=== PATIENT | female | born 1945 | race Caucasian/White ===

== ENCOUNTER 2023-01-04 00:20 | Day surgery (SDC) | payer MEDICARE, SELFPAY ==
[2022-12-26 12:05] VITALS: BMI 25.9
--- NOTE | 2022-12-26 12:25 | PC.NURSE ---
Report to the Outpatient Waiting Room, entrance under the green pavilion located off [facility], at time __7:00AM on date __01/04/23 . Planned Procedure Time: __9:00AM . Time changes happen often and if your time is changed the preop area will call you the afternoon before. - You and your visitor will be asked to self-screen and do not enter if you have any COVID symptoms. - Only one visitor is requested with a max of two and NO children visitors are allowed at this time. - The patient visitor may be requested to leave or wait in car when not with patient due to distancing restrictions. - A mask is optional within the hospital at this time. Patients may have clear liquids (water, carbonated beverages, clear teas, apple juice) until 3 hours prior to surgery with a maximum of 20 ounces. - No food from midnight until time of surgery - Infants may have breast milk until 4 hours before surgery, formula 6 hours prior to surgery. - Children will be allowed to drink immediately following surgery. If applicable, please bring a bottle or sippy cup to assist with drinking. Juice, water, soda, and popsicles are readily available. For infants on formula, please bring formula the day of surgery. Pacifiers are allowed. Take the following medications with a SIP of water the morning of surgery: ___LORAZEPAM NEEDED, EYE DROPS DO NOT STOP ANY OF YOUR OTHER PRESCRIPTION MEDICATIONS PRIOR TO SURGERY ?EXCEPT THE FOLLOWING Medications to discontinue per physician ____HOLD ALL VITAMINS/SUPPLEMENTS AND IBUPROFEN FOR [address] BRADY(PER PATIENT)__ Date to take last dose 12/28/22 Please no make-up, nail stateless, hairspray, perfume, deodorant, or body powder the day of surgery. No jewelry (including any body piercings) or valuables the day of surgery, leave them at home. Please take a shower or bath the night before, or the morning of, surgery with an antibacterial soap. Wear comfortable, loose fitting clothing. Children are encouraged to wear pajamas. - Jewelry must be removed prior to entering the operating room. Rings and piercings that are not removed may be cut off. - The hospital will not accept responsibility for valuables. - Please leave all valuables, including medications, at home the day of surgery. If you are going home after surgery, a licensed pharmacy delivery driver must drive you home. - NO public transportation without another adult if you receive anesthesia. - We recommend that an adult stay with you for 24 hours following discharge. - We also recommend that you do not drive, make important decision, drink alcoholic beverages, or take any drugs that were not prescribed by your health care provider for at least 24 hours after your discharge time. Follow any additional instructions given to you from your surgeon. If you or anyone in your household have experienced Covid symptoms in the past week, please notify your surgeon or the nurse liaison at the phone number below for possible testing. Telephone instructions given to ___patient and asked if any additional questions and then verbalized understanding. Patient advised to call surgeon office or pre surgery nurse liaison [phone] if any additional questions.
--- NOTE | 2022-12-29 08:50 | PM.IMHP ---
H&P: HPI History of Present Illness Date/Time: 12/29/22 08:50 Chief Complaint: Mixed incontinence Narrative: History of mixed incontinence. Stress incontinence predominant. Presents for surgical correction Review of Systems Review of Systems: All systems reviewed & are unremarkable except as noted in HPI and below PMFSH Social History Social History Smoking packs per day: 0.2 Smoking cigarettes per day: 4.0 Years smoked: 5 Smoking pack-years: 1.00 Smoking status: Former smoker Tobacco type: cigarettes Smoking end date: 03/30/75 Alcohol intake: current Drinks per week: 2 Substance use: never Living arrangements: with family Additional living arrangements comments: [facility] Spiritual care concerns: No Meds Home Medications and Allergies Home Medications Medication Instructions Recorded Confirmed Type Cordycep 1 tab-cap PO DAILY 12/26/22 12/26/22 History Refveratoril 1 tab-cap PO DAILY 12/26/22 12/26/22 History cholecalciferol (vitamin D3) 50 50 mcg PO DAILY 12/26/22 12/26/22 History mcg (2,000 unit) capsule glucosamine sulf dipot 1 cap PO DAILY 12/26/22 12/26/22 History chlr,msm,chond 550 mg-C 30 mg-kanwal 1 mg capsule (Glucosamine Chondroitin) hydroxyzine HCl 25 mg tablet 25 mg PO BID PRN Itching 12/26/22 12/26/22 History ibuprofen 800 mg tablet 800 mg PO Q6H PRN Pain 12/26/22 12/26/22 History lorazepam 0.5 mg tablet 0.25 mg PO DAILY PRN Anxiety 12/26/22 12/26/22 History tobramycin 0.3 %-dexamethasone 0.1 1 drp EACH EYE BID 12/26/22 12/26/22 History % eye drops,suspension triamcinolone acetonide 0.1 % 1 applic topical BID PRN Itching 12/26/22 12/26/22 History topical cream Allergies Allergy/AdvReac Type Severity Reaction Status Date / Time Sulfa (Sulfonamide Allergy Unknown Rash Verified 12/26/22 11:55 Antibiotics) CYCLINES Allergy Mild VAGINAL Uncoded 12/26/22 11:55 ITCHING Exam Narrative: No acute distress Normal breathing Alert orient x3 Urethral mobility noted Assessment and Plan Assessment and plan (1) KRISTIAN (stress urinary incontinence, female): Code(s): N39.3 - Stress incontinence (female) (male) Status: Acute Assessment and Plan: Plan for urethral sling. Understands this is were stress incontinence and will not help overactive bladder. Understands risks of bleeding, infection, damage to the urinary tract, vaginal mesh extrusion, urinary tract mesh erosion, obstructive voiding requiring secondary seizure competently pain, dyspareunia. She agrees to proceed (2) Overactive bladder: Code(s): N32.81 - Overactive bladder Status: Acute
--- NOTE | 2023-01-03 16:13 | P.PNAN_ITS ---
Anes - Initial Pre Proc Eval Procedure: Operation Date: 01/04/23 09:00 Proposed Procedures p Urethral Sling - Raheem Muniz MD Date/Time: 01/03/23 16:13 Surgeon: Raheem Muniz MD Pre Op Diagnosis: Stress Incont Patient Data Age: 77 Gender: F Height: 1.68 m Weight: 73 kg Allergies Allergy/AdvReac Type Severity Reaction Status Date / Time Sulfa (Sulfonamide Allergy Unknown Rash Verified 12/26/22 11:55 Antibiotics) CYCLINES Allergy Mild VAGINAL Uncoded 12/26/22 11:55 ITCHING Home Medications Medication Instructions Recorded Confirmed Type Cordycep 1 tab-cap PO DAILY 12/26/22 12/26/22 History Refveratoril 1 tab-cap PO DAILY 12/26/22 12/26/22 History cholecalciferol (vitamin D3) 50 50 mcg PO DAILY 12/26/22 12/26/22 History mcg (2,000 unit) capsule glucosamine sulf dipot 1 cap PO DAILY 12/26/22 12/26/22 History chlr,msm,chond 550 mg-C 30 mg-kanwal 1 mg capsule (Glucosamine Chondroitin) hydroxyzine HCl 25 mg tablet 25 mg PO BID PRN Itching 12/26/22 12/26/22 History ibuprofen 800 mg tablet 800 mg PO Q6H PRN Pain 12/26/22 12/26/22 History lorazepam 0.5 mg tablet 0.25 mg PO DAILY PRN Anxiety 12/26/22 12/26/22 History tobramycin 0.3 %-dexamethasone 0.1 1 drp EACH EYE BID 12/26/22 12/26/22 History % eye drops,suspension triamcinolone acetonide 0.1 % 1 applic topical BID PRN Itching 12/26/22 12/26/22 History topical cream Patient hx anesthesia problems: none Family hx anesthesia problems: none Results Review: All pre-operative results and documents have been reviewed as part of the pre- operative evaluation. [facility] Past Medical History Medical History (Updated 01/03/23 @ 16:14 by Mode Hager MD) Melanoma Overactive bladder KRISTIAN (stress urinary incontinence, female) Social History Social History Smoking packs per day: 0.2 Smoking cigarettes per day: 4.0 Years smoked: 5 Smoking pack-years: 1.00 Smoking status: Former smoker Tobacco type: cigarettes Smoking end date: 03/30/75 Alcohol intake: current Drinks per week: 2 Substance use: never Living arrangements: with family Additional living arrangements comments: [facility] Spiritual care concerns: No Anes - Eval Final PreProcedure Day of Procedure 01/03/23 16:13 Patient weight: overweight Heart: regular rate and rhythm Lungs: clear to auscultation and normal air movement Airway: Mallampati scale class II Neurological: alert and oriented Last oral intake: >/= 8 hours ASA classification: II Emergent: no Anesthetic plan: proceed Anesthesia type and monitoring: general GIVS and LMA Results Review: All pre-operative results and documents have been reviewed as part of the pre- operative evaluation. Informed Consent: The patient's anesthetic plan and its attendant risks and benefits were discussed with the patient/family/POA. Questions were solicited and answers provided to the satisfaction of the patient/family/POA.
--- NOTE | 2023-01-04 04:37 | WPDHPUPDATE1 ---
History and Physical Update Update Date/Time: 01/04/23 04:37 History and Physical has been reviewed, including an updated exam of the patient. There are NO changes in the patient's condition. Risks, benefits, and alternatives have been discussed and questions answered. Patient agrees to proceed with procedure.
[2023-01-04] MEDS: LACTATED RINGERS 1,000 ML 30 ML IV CONT (07:00)
[2023-01-04 08:30] VITALS: BP 123/63; PULSE 64; RESP 16; TEMP 36.9; O2SAT 100
[2023-01-04] MEDS: ceFAZolin 2 GM/D5W 50 ML 2 GM/50 ML BAG IVPB (08:50)
[2023-01-04] MEDS: BUPIVACAINE/EPINEPHRINE 0.25% 10 ML VIAL INFILTRATE (09:09)
[2023-01-04 09:23] VITALS: BP 115/51; PULSE 81; RESP 16; O2SAT 100
--- NOTE | 2023-01-04 09:29 | P.OP_ITS ---
Procedure Note - Detailed Date of Procedure 01/04/23 Pre-op Diagnosis Stress Incontinence Post-op Diagnosis Same Procedure Performed mid urethral sling cystoscopy Surgeon Raheem Muniz MD Precision Dancer None Anesthesia MAC and Local Indications This is a female with confirm stress urinary incontinence. She desires surgical correction. She understands the risks of bleeding, infection, injury to the urinary tract, vaginal mesh extrusion, urinary tract mesh erosion, obstructive voiding requiring a secondary procedure, hip and leg pain, dyspareunia, inability to improve overactive bladder symptoms. She agrees to proceed. Description of Procedure She was correctly identified. Informed consent obtained. She was brought the operating room. She was given appropriate anesthesia. She was given appropriate perioperative antibiotics. A time-out performed. I marked out the site of the inner thigh incisions. I anesthetized the skin and made those incisions. I anesthetized the anterior vaginal wall over the mid urethra. Of note she has uterine prolapse which is largely asymptomatic. I made a 1 cm incision. I dissected out laterally taking great care not to injure the refilled vaginal wall. I passed the helical trocars. First on the left. Then on the right. I did this from the thigh incision towards the vaginal incision. The sling was connected to the trocars and brought out through the thigh incision. I tensioned the sling appropriately. I cut and the plastic sheaths. I then closed the incision with 2 0 Vicryl. On cystoscopy there is no tumors or surgical artifact. There was no surgical artifact in the urethra. I cut the excess sling material. Close incisions with glue. She was awakened and transferred to the PACU in stable condition. Implants Urethral sling Estimated Blood Loss 30 Urine Output -100.0 Drains No Packing No Pathology None sent Complications No immediate complications Condition Stable Disposition PACU
[2023-01-04 09:50] VITALS: BP 149/75; PULSE 78; RESP 16
--- NOTE | 2023-01-04 10:09 | SUR.PHASEII ---
delay discharge. pt still needs to void. pt said she does not have the urge. pt given more water and IV fluids. vss will continue to monitor.
[2023-01-04 10:20] VITALS: BP 139/65; PULSE 85; RESP 16
== END 2023-01-04 10:41 | disposition home or self-care (01) ==
PROVIDERS: PCP Internal Medicine; Visit Provider Urology
PROC: (CPT 57288; principal; 2023-01-04 09:00)
DX: N39.3 Stress incontinence (female) (male) (principal); N32.81 Overactive bladder; Z87.891 Personal history of nicotine dependence
CPT/HCPCS: 57288; C1771; J0690; J2250; J2704; J3010; J7030; J7120

== ENCOUNTER 2023-05-17 09:33 | Outpatient (CLI) | payer MEDICARE, SELFPAY ==
--- NOTE | ~2023-05-17 | US_ITS ---
EXAMINATION: US venous doppler [facility] DATE: 05/17/2023 10:27 INDICATION: Lower limb swelling. TECHNIQUE: Grayscale ultrasound images without and with compression and Doppler ultrasound images of the bilateral lower extremity veins were obtained. COMPARISON: None. FINDINGS: The visualized portions of right common femoral vein, profunda (deep) femoral vein, femoral vein, pop liteal vein, posterior tibial veins, peroneal veins, gastrocnemius vein and greater saphenous vein ou tflow are patent. The visualized portions of left common femoral vein, profunda femoral vein, femoral vein, popliteal v ein, posterior tibial veins, peroneal veins, gastrocnemius vein and greater saphenous vein outflow ar e patent. IMPRESSION: 1. No deep venous thrombosis in either lower limb. Reviewed, dictated and finalized at location A.
== END 2023-05-17 09:34 | disposition home or self-care (01) ==
PROVIDERS: PCP Internal Medicine; Visit Provider Internal Medicine
DX: R60.0 Localized edema (principal)
CPT/HCPCS: 93970

== ENCOUNTER 2023-07-27 14:42 | Emergency (ER) | payer MEDICARE, SELFPAY ==
--- NOTE | ~2023-07-27 | XR_ITS ---
EXAM: XR tibia fibula LT 2V DATE: 07/27/2023 15:35 HISTORY: left calf pain/swelling no injury . COMPARISON: None available. FINDINGS: Decreased mineralization. No fracture or dislocation. No lytic or blastic lesion. Mild deg enerative change in the left knee and ankle. No erosion or periosteal change. Scattered soft tissue/v ascular calcifications. IMPRESSION: No acute osseous finding the left tibia/fibula. No radiopaque foreign body. Reviewed, dictated and finalized at location K. IMPRESSION: No acute osseous finding the left tibia/fibula. No radiopaque forei gn body.
--- NOTE | 2023-07-27 14:46 | ED.EXTPRO ---
HPI - Extremity Problem General Chief complaint: Extremity Injury, Lower Stated complaint: Leg pain Time Seen by Provider: 07/27/23 15:05 Source: patient, RN notes reviewed and old records reviewed Mode of arrival: ambulatory Limitations: no limitations History of Present Illness HPI Narrative: 78-year-old female presents to the [facility] with complaints left calf pain and swelling Patient reports that it started this morning and felt like her leg was ?breaking. ? Has gotten better. Walks with a cane. Has a history of a blood clot in that leg approximately -15-18 years ago Patient has negative Homans sign. Left leg is 0.5 cm at upper calf, mid calf and lower calf greater than right leg. Patient states that she has had that blood clot that that leg is typically a little bit larger than the right. Related Data Home Medications Medication Instructions Recorded Confirmed cholecalciferol (vitamin D3) 50 50 mcg PO DAILY 12/26/22 07/27/23 mcg (2,000 unit) capsule hydroxyzine HCl 25 mg tablet 25 mg PO BID PRN Itching 12/26/22 07/27/23 triamcinolone acetonide 0.1 % 1 applic topical BID PRN Itching 12/26/22 07/27/23 topical cream Allergies Allergy/AdvReac Type Severity Reaction Status Date / Time Sulfa (Sulfonamide Allergy Unknown Rash Verified 07/27/23 14:53 Antibiotics) CYCLINES Allergy Mild VAGINAL Uncoded 07/27/23 14:53 ITCHING Review of Systems Review of Systems: All systems reviewed & are unremarkable except as noted in HPI and below Constitutional: Constitutional: Reports no additional constitutional complaints Eyes: Eyes: Reports no additional eye complaints ENT: Reports system reviewed and no additional complaints, except as documented Cardiovascular: Cardiovascular: Reports no additional cardiovascular complaints, Denies chest pain and Denies dyspnea Respiratory: Respiratory: Reports no additional respiratory complaints, Denies chest congestion, Denies cough and Denies dyspnea Gastrointestinal: Gastrointestinal: Reports no additional gastrointestinal complaints, Denies abdominal pain, Denies nausea and Denies vomiting Musculoskeletal: Musculoskeletal: Reports as per HPI Integumentary/Breasts: Skin/Breast: Reports system reviewed and no additional complaints, except as docu Neurologic: Reports system reviewed and no additional complaints, except as documented Psychiatric: Psychiatric: Reports no additional psychiatric complaints Allergic/Immunologic: Allergic/Immunologic: Reports no additional allergic/immunologic complaints PMFSH Past Medical History Medical History Melanoma Overactive bladder KRISTIAN (stress urinary incontinence, female) Social History Social History Smoking packs per day: 0.2 Smoking cigarettes per day: 4.0 Years smoked: 5 Smoking pack-years: 1.00 Smoking status: Former smoker Tobacco type: cigarettes Smoking end date: 03/30/75 Alcohol intake: current Drinks per week: 2 Substance use: never Living arrangements: with family Additional living arrangements comments: [facility] Spiritual care concerns: No Comments At the time of my signature, I reviewed and agree with the nursing past medical, surgical, social, and family history. There is no relevant family history pertinent to the patient complaint. Exam Const: General: cooperative, healthy appearing, comfortable, no acute distress, well developed, alert and well nourished Nutritional Appearance: well nourished Orientation/consciousness: patient oriented x3 Limitations: no limitations HENMT: Head: normal to inspection Ears: hearing grossly normal bilaterally and external ears normal Face/Nose/Sinus: Normal external nose present, Normal nares present, Normal nasal mucous membranes and turbinates present, normal facial exam and face symmetric Face and sinus: normal facial exam and face sy
[2023-07-27 14:53] VITALS: BP 147/70; PULSE 81; RESP 16; TEMP 36.7; O2SAT 99
[2023-07-27 14:55] VITALS: BP 147/70; PULSE 81; RESP 16; TEMP 36.7; O2SAT 99
== END 2023-07-27 16:07 | disposition home or self-care (01) ==
PROVIDERS: Emergency Provider Nurse Practitioner; PCP Internal Medicine
DX: M79.662 Pain in left lower leg (principal); Z87.891 Personal history of nicotine dependence; Z85.820 Personal history of malignant melanoma of skin
CPT/HCPCS: 73590; 99213; G0463

== ENCOUNTER 2023-12-03 12:23 | Outpatient (CLI) | payer MEDICARE, SELFPAY ==
--- NOTE | ~2023-12-03 | XR_ITS ---
AP lateral views of the left hip Clinical history: Pain Findings: No acute fracture or dislocation is seen. Osseous alignment is anatomic. The left hip joint is preserved. Soft tissues are unremarkable. Impression: No significant abnormality is seen. Reviewed, dictated and finalized at location M. [employer] Impression: No significant abnormality is seen.
== END 2023-12-03 12:24 | disposition home or self-care (01) ==
PROVIDERS: PCP Internal Medicine; Visit Provider Physical Medicine & Rehabilitation Pain Medicine
DX: M25.552 Pain in left hip (principal)
CPT/HCPCS: 73502

== ENCOUNTER 2024-01-10 10:50 | Emergency (ER) | payer MEDICARE, SELFPAY ==
--- NOTE | ~2024-01-10 | US_ITS ---
EXAMINATION: US venous doppler [facility] DATE: 01/10/2024 11:20 INDICATION: Left lower limb swelling and pain TECHNIQUE: Grayscale ultrasound images without and with compression and Doppler ultrasound images of the left lower extremity veins were obtained. COMPARISON: None. FINDINGS: The visualized portions of left common femoral vein, profunda (deep) femoral vein, femoral vein, popl iteal vein, peroneal veins, posterior tibial veins, gastrocnemius vein and greater saphenous vein out flow are patent. IMPRESSION: 1. No deep venous thrombosis in the left lower limb. Reviewed, dictated and finalized at location B.
--- NOTE | ~2024-01-10 | CT_ITS ---
CT OF left knee EXAMINATION: CT knee LT wo con DATE: 01/10/2024 11:29 INDICATION: Knee pain with leg swelling TECHNIQUE: Computed tomography (CT) of the left knee was performed without intravenous contrast. Auto mated exposure control and iterative reconstruction technique were employed. The dose-length product was 462.58 mGy-cm. COMPARISON: Ultrasound left lower extremity DVT, same date; x-ray left tib-fib 07/19/2023. FINDINGS: Decreased mineralization. Moderate medial joint space narrowing. Tricompartmental osteophytosis, mode rate in the medial and lateral compartments. Chondrocalcinosis. No fracture or dislocation. No lytic or blastic lesion. No erosion or periosteal change. Patellar tendon enthesopathy. Small volume joint fluid. Small Sharif's cyst. The ACL is not confidently identified. The remaining major knee stabilizer s appear to be intact. IMPRESSION: No acute osseous finding in the left knee. Osteopenia. Moderate tricompartmental arthritis with chondrocalcinosis. Possible chronic ACL tear. Sm all left knee joint effusion. Small Sharif's cyst. Reviewed, dictated and finalized at location K. IMPRESSION: No acute osseous finding in the left knee. Osteopenia. Moderate tricompartmental arthritis with chondrocalcinosis. Possibl e chronic ACL tear. Small left knee joint effusion. Small Sharif's cyst.
[2024-01-10 10:51] VITALS: BP 153/81; PULSE 84; RESP 16; TEMP 36.5; O2SAT 100
--- NOTE | 2024-01-10 10:52 | ED.EXTPRO ---
HPI - Extremity Problem General Chief complaint: Extremity Problem,Nontraumatic Stated complaint: leg pain Time Seen by Provider: 01/10/24 10:52 Source: patient Mode of arrival: ambulatory Limitations: no limitations History of Present Illness HPI Narrative: Dorothy is a 78-year-old female patient presenting to the emergency room today with complaints of left leg pain with swelling. She reports pain is behind the knee and radiating down the back of her leg. She does have a strong pedal pulse. History of DVT in the left leg 16 years ago. Does not take any blood thinners. Rates her pain 8/10 currently. Pain is worse with ambulation/bearing weight. No known injury. Patient denies any shortness of breath, headache, or chest pain. Related Data Home Medications Medication Instructions Recorded Confirmed cholecalciferol (vitamin D3) 50 50 mcg PO DAILY 12/26/22 07/27/23 mcg (2,000 unit) capsule hydroxyzine HCl 25 mg tablet 25 mg PO BID PRN Itching 12/26/22 07/27/23 triamcinolone acetonide 0.1 % 1 applic topical BID PRN Itching 12/26/22 07/27/23 topical cream Allergies Allergy/AdvReac Type Severity Reaction Status Date / Time Sulfa (Sulfonamide Allergy Unknown Rash Verified 01/10/24 11:02 Antibiotics) CYCLINES Allergy Mild VAGINAL Uncoded 07/27/23 14:53 ITCHING Review of Systems Review of Systems: Pertinent positives per HPI. Patient denies any fever, chills, rash, headache, visual changes, dizziness, cough, runny nose, sore throat, shortness of breath, chest pain, palpitations, nausea, vomiting, diarrhea, constipation, abdominal pain, or any urinary issues. [facility] Past Medical History Medical History Melanoma Overactive bladder KRISTIAN (stress urinary incontinence, female) Social History Social History Smoking packs per day: 0.2 Smoking cigarettes per day: 4.0 Years smoked: 5 Smoking pack-years: 1.00 Smoking status: Former smoker Tobacco type: cigarettes Smoking end date: 03/30/75 Alcohol intake: current Drinks per week: 2 Substance use: never Living arrangements: with family Additional living arrangements comments: [facility] Spiritual care concerns: No Comments At the time of my signature, I reviewed and agree with the nursing past medical, surgical, social, and family history. There is no relevant family history pertinent to the patient complaint. Exam Narrative: General: Well-developed, well nourished, in no apparent distress Head: Normocephalic, atraumatic. Cardio: Regular rate and rhythm, s1 and s2 normal, no murmur appreciated. Resp: Clear to auscultation bilaterally, no rhonchi, rales, wheezing or rubs. Musculoskeletal: No deformity, tender to palpation over the left posterior knee with pain radiating down the left posterior leg, tenderness to palpation over the left calf muscle, nonpitting edema to the left lower extremity when compared to the right grossly normal range of motion, muscle strength strong and equal, peripheral pulse strong, no cyanosis, normal gait and station Course Course Emergency Course: Portions of this record may have been created with voice recognition software. Vital Signs Vital signs: Vital Signs Temperature 36.5 C 01/10/24 10:51 Pulse Rate 84 01/10/24 10:51 Respiratory Rate 16 01/10/24 10:51 Blood Pressure 153/81 H 01/10/24 10:51 Pulse Oximetry 100 01/10/24 10:51 Oxygen Delivery Room Air 01/10/24 10:51 Temperature 36.5 C 01/10/24 10:51 Pulse Rate 83 01/10/24 11:49 Respiratory Rate 18 01/10/24 11:49 Blood Pressure 143/73 H 01/10/24 11:49 Pulse Oximetry 97 01/10/24 11:49 Oxygen Delivery Room Air 01/10/24 10:51 Vital signs reviewed MDM - Extremity (Nontraumatic) MDM Narrative Medical decision making narrative: At the time of visit patient is resting comfortably on
--- NOTE | 2024-01-10 11:10 | PC.NURSE ---
Pt in scans at this time
[2024-01-10] MEDS: ONDANSETRON INJ 4 MG/2 ML VIAL IV PUSH (11:44)
[2024-01-10] MEDS: MORPHINE SULFATE (*CRX) 2 MG/ML INJ IV PUSH (11:44)
[2024-01-10 11:49] VITALS: BP 143/73; PULSE 83; RESP 18; O2SAT 97
[2024-01-10 11:59] LABS: Basophils Percent Auto 0.5 % (0.2-1.2); Eosinophils Absolute Auto 0.1 K/mm3 (0-0.3); Eosinophils Percent Auto 1.4 % (0-4.4); Hematocrit 43.7 % (37.0-47.0); Hemoglobin 14.4 g/dL (12.0-15.0); Immature Granulocyte Absolute 0.01 K/mm3 (0.00-0.031); Immature Granulocyte Percent A 0.2 % (0-0.5); Lymphocytes Percent Auto 17.5 % (18.3-44.2); Mean Corpuscular Hemoglobin 31.6 pg (26-34); Mean Corpuscular Volume 95.8 fl (80-100); Monocytes Absolute Auto 0.6 K/mm3 (0.1-0.6); Monocytes Percent Auto 9.2 % (2.6-8.5); Neutrophils Absolute Auto 4.5 K/mm3 (1.3-6.7); Neutrophils Percent Auto 71.2 % (45.5-73.1); Platelet Count Result 226 k/mm3 (150-375); Red Blood Count 4.56 M/mm3 (4.2-5.4); Red Cell Distribution Width 13.4 % (11.5-14.5); White Blood Count 6.3 K/mm3 (4.5-10.0)
[2024-01-10 12:09] LABS: Alanine Aminotransferase 18 U/L (6-35); Albumin Level 4.4 g/dL (3.5-5.1); Alkaline Phosphatase 76 U/L (38-126); Anion Gap 6 mmol/L (4-12); Aspartate Amino Transferase 24 U/L (14-36); Bilirubin,Total 0.5 mg/dL (0.2-1.3); Blood Urea Nitrogen 12 mg/dL (7-17); Calcium 9.8 mg/dL (8.4-10.2); Carbon Dioxide 24 mmol/L (22-30); Chloride 109 mmol/L (98-107); Estimated Glomerular Filt Rate > 60; Glucose 88 mg/dL (65-110); Potassium 4.2 mmol/L (3.4-5.0); Sodium 139 mmol/L (137-145)
[2024-01-10 12:15] LABS: INR 0.9; Prothrombin Time 12.5 Seconds (11.1-14.7)
[2024-01-10 12:16] LABS: Partial Thromboplastin Time 28.3 Seconds (22.3-36.8)
--- NOTE | 2024-01-10 13:15 | PC.NURSE ---
pt refused offers of prescribed pain medication. provider made aware, no new orders
--- NOTE | 2024-01-10 13:17 | PC.NURSE ---
pt refused ru wrap
[2024-01-10 13:29] VITALS: BP 132/74; PULSE 80; RESP 16; O2SAT 98
== END 2024-01-10 13:31 | disposition home or self-care (01) ==
PROVIDERS: Emergency Provider Nurse Practitioner Family; PCP Internal Medicine
DX: M25.462 Effusion, left knee (principal); M71.22 Synovial cyst of popliteal space [Baker], left knee; M17.12 Unilateral primary osteoarthritis, left knee; Z86.718 Personal history of other venous thrombosis and embolism; Z85.820 Personal history of malignant melanoma of skin; Z87.891 Personal history of nicotine dependence
CPT/HCPCS: 36415; 73700; 80053; 85025; 85610; 85730; 93971; 96374; 96375; 99284; J2270; J2405

== ENCOUNTER 2024-04-28 13:20 | Emergency (ER) | payer MEDICARE, SELFPAY ==
--- NOTE | ~2024-04-28 | XR_ITS ---
EXAMINATION: XR chest 2V DATE: 04/28/2024 14:59 INDICATION: Shortness of breath. Dizziness. Nausea. TECHNIQUE: Frontal and lateral views of the chest were obtained. COMPARISON: None. FINDINGS: There is mild atelectasis in the lower lung zones. No pleural effusion or pneumothorax. The heart size is normal. There are changes of anterior fusion procedure in cervical spine. There is a l eft shoulder arthroplasty. IMPRESSION: 1. Mild atelectasis in the lower lung zones. Reviewed, dictated and finalized at location A.
--- NOTE | ~2024-04-28 | CT_ITS ---
EXAMINATION: CT brain wo con DATE: 04/28/2024 16:02 INDICATION: Dizziness. TECHNIQUE: Computed tomography (CT) of the head was performed without intravenous contrast. The mA wa s adjusted according to patient size. Iterative reconstruction technique was employed. The dose-lengt h product was 605.33 mGy-cm. COMPARISON: None FINDINGS: There is no intracranial hemorrhage, acute infarction, or abnormal intracranial mass lesion . The ventricles are normal in size. The paranasal sinuses are clear. There are likely changes of ocu lar lens replacement surgeries. There is a small right mastoid effusion. IMPRESSION: 1. Normal brain. Reviewed, dictated and finalized at location A. IMPRESSION: 1. Normal brain.
[2024-04-28 13:25] VITALS: BP 128/75; PULSE 77; RESP 20; TEMP 36.5; O2SAT 100
--- NOTE | 2024-04-28 13:28 | ECG_ITS ---
Test Date: 2024-04-28 13:36:47 Measurements Intervals [place] Rate: 71 P: 34 HI: 131 QRS: 26 QRSD: 74 T: 50 QT: 395 QTc: 432 Interpretive Statements SINUS RHYTHM POSSIBLE LEFT ATRIAL ENLARGEMENT EARLY PRECORDIAL R/S TRANSITION BASELINE ARTIFACT- I, II, III, AVR, AVL, AVF BORDERLINE ECG No previous ECG available for comparison Electronically Signed On 04-28-2024 15:01:49 CDT by Cristi Workman D.O.
[2024-04-28 13:55] LABS: Basophils Absolute Auto 0.1 K/mm3 (0.0-0.1); Basophils Percent Auto 0.6 % (0.2-1.2); Eosinophils Absolute Auto 0.1 K/mm3 (0-0.3); Eosinophils Percent Auto 1.1 % (0-4.4); Hematocrit 45.7 % (37.0-47.0); Immature Granulocyte Absolute 0.02 K/mm3 (0.00-0.031); Immature Granulocyte Percent A 0.2 % (0-0.5); Lymphocytes Absolute Auto 1.98 K/mm3 (0.9-3.2); Lymphocytes Percent Auto 22.7 % (18.3-44.2); Mean Corpuscular HGB Conc 32.8 g/dl (32-36); Mean Corpuscular Hemoglobin 31.4 pg (26-34); Mean Corpuscular Volume 95.6 fl (80-100); Mean Platelet Volume 11.6 fl (7.4-10.4); Monocytes Absolute Auto 0.7 K/mm3 (0.1-0.6); Monocytes Percent Auto 7.8 % (2.6-8.5); Neutrophils Absolute Auto 5.9 K/mm3 (1.3-6.7); Neutrophils Percent Auto 67.6 % (45.5-73.1); Platelet Count Result 194 k/mm3 (150-375); Red Blood Count 4.78 M/mm3 (4.2-5.4); Red Cell Distribution Width 13.2 % (11.5-14.5); White Blood Count 8.7 K/mm3 (4.5-10.0)
--- NOTE | 2024-04-28 15:07 | ED.GENADULT ---
HPI - General Adult General Chief complaint: Unspecified <SHANA French Last Filed: 04/28/24 15:20> Stated complaint: pt states she believes she's had heatstroke, SOB, <Cassandra Chauhan PA-C - Last Filed: 04/28/24 15:20> Time Seen by Provider: 04/28/24 15:08 <SHANA French Last Filed: 04/28/24 15:20> Focused HPI: Patient is a 79-year-old female who presents the ED with report of dizziness/lightheadedness. Patient reports she was outside watering her crawford for approximately 30-45 minutes when she began feeling extremely overheated. Began feeling sweaty, nauseous, dizzy/lightheaded. She also began feeling short of breath. Went inside and sat down, but states she had a hard time catching her breath. Attempted drinking water, but persistently felt dizzy. Describes it as room spinning and also lightheaded. She then prompted here for evaluation. She is feeling improved currently. She states the trouble breathing is improved but she still felt dizzy with standing upright in radiology for her chest x-ray. She denies focal weakness or numbness, headache, chest pain, vision changes, syncope. GENERAL: Mildly anxious-appearing, well-nourished, and in no acute distress. HEAD: Normocephalic, atraumatic. CHEST: Clear to auscultation. ?No respiratory distress. HEART: Regular rate and rhythm.? NEURO: ?Alert and oriented x3. Equal press reader strength bilaterally. Strength 5/5 in upper and lower extremities bilaterally. No pronator drift. Patient screened in triage and initial orders placed.? ?Additional care and disposition to be based upon?diagnostic testing and treatment. <Cassandra Chauhan PA-C - Last Filed: 04/28/24 15:20> Source: patient <SHANA French Last Filed: 04/28/24 15:20> Mode of arrival: ambulatory <SHANA French Last Filed: 04/28/24 15:20> Limitations: no limitations <SHANA French Last Filed: 04/28/24 15:20> History of Present Illness HPI narrative: This is a 79-year-old female presenting for concerns of potential heat exhaustion versus heat stroke. Patient states that she was outside for a approximately 30-45 minutes where she felt lightheaded to the point that she might pass out. She was having subjective shortness of breath and some nausea. This slowly improved after she sat down and got side. Did not lose consciousness, did not strike her head or have any kind of trauma. She was otherwise in her normal state of health. MSE as described above by MLP. <Harish Hancock MD - Last Filed: 04/28/24 18:48> Related Data Home medications: Home Medications Medication Instructions Recorded Confirmed cholecalciferol (vitamin D3) 50 50 mcg PO DAILY 12/26/22 02/17/24 mcg (2,000 unit) capsule acetaminophen 650 mg 650 mg PO Q12H 01/17/24 02/17/24 tablet,extended release pregabalin 75 mg capsule 75 mg PO BID 01/17/24 02/17/24 valganciclovir 450 mg tablet 900 mg PO DAILY PRN 01/17/24 02/17/24 (Valcyte) <Cassandra Chauhan PA-C - Last Filed: 04/28/24 15:20> Allergies/adverse reactions: Allergies Allergy/AdvReac Type Severity Reaction Status Date / Time Sulfa (Sulfonamide Allergy Unknown Rash Verified 04/28/24 13:22 Antibiotics) tramadol Allergy Unknown Nervousness Verified 04/28/24 13:22 Tetracyclines AdvReac Unknown Vaginal Verified 04/28/24 13:22 itching <Cassandra Chauhan PA-C - Last Filed: 04/28/24 15:20> Review of Systems Review of Systems: As reviewed above in the HPI <Harish Hancock MD - Last Filed: 04/28/24 18:48> PMFSH Past Medical History Medical History: Medical History Melanoma Overactive bladder KRISTIAN (stress urinary incontinence, female) <Cassandra Chauhan PA-C - Last Filed: 04/28/24 15:20> Surgical History Surgical History: Surgical History
[2024-04-28 15:37] LABS: Alanine Aminotransferase 30 U/L (6-35); Albumin Level 4.4 g/dL (3.5-5.1); Alkaline Phosphatase 83 U/L (38-126); Anion Gap 15 mmol/L (4-12); Aspartate Amino Transferase 36 U/L (14-36); Bilirubin,Total 0.4 mg/dL (0.2-1.3); Blood Urea Nitrogen 20 mg/dL (7-17); Calcium 9.8 mg/dL (8.4-10.2); Carbon Dioxide 20 mmol/L (22-30); Chloride 102 mmol/L (98-107); Estimated Glomerular Filt Rate 48; Glucose 101 mg/dL (65-110); Potassium 3.9 mmol/L (3.4-5.0); Sodium 137 mmol/L (137-145)
[2024-04-28 15:40] LABS: Creatine Kinase 53 U/L (30-135)
[2024-04-28 15:44] LABS: Troponin I < 0.012 ng/mL (0.000-0.034)
[2024-04-28 15:47] VITALS: BP 123/79; PULSE 76; RESP 16; TEMP 36.6; O2SAT 100
[2024-04-28 15:57] LABS: Appearance Urine Clear (Clear); Bacteria Urine 4+ /hpf; Bilirubin Urine Negative (Negative); Blood Urine Negative (Negative); Color Urine Yellow (Yellow); Glucose Urine UA Negative (Negative); Ketones Urine Trace mg/dL (Negative); Leukocyte Esterase Ur 3+ LEU/UL (Negative); Nitrate Urine Positive (Negative); Non Pathogenic Casts 0-2; Protein Urine Negative (Negative); RBC Urine 0-2 /hpf (0-2); Specific Grav Ur 1.012 (1.001-1.035); Squamous Epithelial Cell Urine Occasional /hpf (Few); Urobilinogen Urine 0.2 mg/dL (<2.0); pH Urine 8.5 (5.0-9.0)
[2024-04-28 15:59] LABS: Add Urine Microscopic? YES
[2024-04-28] MEDS: MECLIZINE HCL 25 MG TABLET PO (16:49)
[2024-04-28] MEDS: ONDANSETRON INJ 4 MG/2 ML VIAL IV PUSH (16:49)
[2024-04-28] MEDS: SODIUM CHLORIDE 0.9% IV 1,000 ML 999 ML IV CONT (16:49)
[2024-04-28 16:51] VITALS: BP 127/66; PULSE 80; RESP 16; TEMP 37.1; O2SAT 98
[2024-04-28 18:47] VITALS: BP 128/80; PULSE 79; RESP 18; TEMP 36.6; O2SAT 97
[2024-04-28 19:04] VITALS: BP 133/68; PULSE 84; RESP 16; TEMP 36.2; O2SAT 100
== END 2024-04-28 19:07 | disposition home or self-care (01) ==
PROVIDERS: Physician Assistant; Emergency Provider Student in an Organized Health Care Education/Training Program; PCP Internal Medicine
DX: R55 Syncope and collapse (principal); T67.5XXA Heat exhaustion, unspecified, initial encounter; N39.0 Urinary tract infection, site not specified; Z87.891 Personal history of nicotine dependence
CPT/HCPCS: 36415; 70450; 71046; 80053; 81001; 82550; 83735; 84484; 85025; 87077; 87086; 87088; 87186; 93005; 96361; 96374; 99284; A9270; J2405; J7030